=== PATIENT | male | born 1950 | race African-American/Black ===

== ENCOUNTER 2019-09-17 20:28 | Inpatient (IN) ==
[2019-09-17] MEDS: diphenhydrAMINE CAP 50 MG CAPSULE PO PRN (23:46)
[2019-09-17] MEDS ORDERED: DEXTROSE 50% 25 GM/50 ML SYRINGE IV PRN (23:55)
[2019-09-17] MEDS ORDERED: DOCUSATE SODIUM 100 MG CAPSULE PO PRN (23:55)
[2019-09-17] MEDS ORDERED: ALBUTEROL 2.5 MG/3 ML NEB RESP TX PRN (23:55)
[2019-09-17] MEDS ORDERED: GLUCAGON 1 MG VIAL IM PRN (23:55)
[2019-09-18 00:41] LABS: Albumin 3.1 G/DL (3.4-5.0); Bilirubin,Total 0.8 MG/DL (0.2-1.0); Osmolality,Calculated 228.2 MOS/KG (273-304); Total Protein 7.5 G/DL (6.4-8.3)
[2019-09-18 00:47] LABS: Basophils % 0.3 % (0.0-0.8); Eosinophils # 0.1 10*3/uL (0.0-0.87); Eosinophils % 1.1 % (0.00-10.9); Hemoglobin 12.7 GM/DL (14.0-18.0); Immature Granulocytes % 0.3 %; Immature Granulocytes Absolute 0.02 #; Lymphocytes # 0.8 10*3/uL (1.4-4.0); Lymphocytes % 10.9 % (21.2-54.2); Mean Corpuscular HGB Conc 34.3 GM/DL (32-36); Mean Corpuscular Volume 87.3 FL (87-102); Monocytes % 10.1 % (1.7-12.7); Neutrophils % 77.3 % (38.7-73.9); Platelet Count 384 T/CUMM (130-400); Red Blood Count 4.24 MC/CUMM (3.8-5.5); Red Cell Distribution Width 11.7 % (9.3-17.3); White Blood Count 7.4 T/CUMM (4-12)
[2019-09-18] MEDS: CEFEPIME 2,000 MG in SODIUM CHLORIDE 0.9% 100 ML IV SCH ×3 (01:07→17:00)
[2019-09-18] MEDS: ALBUTEROL/IPRATROPIUM 3 ML NEB RESP TX SCH ×4 (02:00→19:43)
[2019-09-18] MEDS: DIAZEPAM 5 MG TABLET PO PRN ×2 (02:32→23:25)
[2019-09-18] MEDS: CLINDAMYCIN INJ 600 MG in PREMIX 1 EACH IV SCH ×3 (02:33→16:24)
[2019-09-18] MEDS: ENOXAPARIN 40 MG/0.4 ML SYRINGE SUBCUT SCH ×2 (02:34→22:11)
[2019-09-18] MEDS: INSULIN LISPRO 100 UNIT/ML SUBCUT SCH ×5 (02:35→22:10)
[2019-09-18] MEDS ORDERED: LORazepam 2 MG/1 ML VIAL IV ONE (05:55)
[2019-09-18 06:42] LABS: Apearance,Urine CLEAR (Clear); Bacteria,Urine Occasional /HPF (Few); Bilirubin,Urine Negative (Negative); Blood, Urine Large mg/dL (Negative); Glucose,Urine (UA) >=500 mg/dL (Negative); Ketones,Urine 80 mg/dL (Negative); Nitrite,Urine Negative (Negative); Protein,Urine 100 MG/DL; RBC,Urine 149 /HPF (0-4); Urine Color Yellow (Yellow); Urine Specific Gravity 1.011 (1.001-1.035); Urine Urobilinogen < 2.0 EU/DL (0.2-1.0); WBC,Urine 17 /HPF (0-6)
[2019-09-18 07:15] LABS: Basophils % 0.3 % (0.0-0.8); Eosinophils % 0.3 % (0.00-10.9); Hematocrit 37.3 VOL% (42.0-52.0); Immature Granulocytes % 0.7 %; Immature Granulocytes Absolute 0.07 #; Lymphocytes # 1.2 10*3/uL (1.4-4.0); Lymphocytes % 10.9 % (21.2-54.2); Mean Corpuscular HGB Conc 34.9 GM/DL (32-36); Mean Corpuscular Volume 85.7 FL (87-102); Mean Platelet Volume 8.5 FL (9.6-12.0); Monocytes % 8.8 % (1.7-12.7); Platelet Count 381 T/CUMM (130-400); Red Blood Count 4.35 MC/CUMM (3.8-5.5); Red Cell Distribution Width 11.8 % (9.3-17.3); White Blood Count 10.6 T/CUMM (4-12)
[2019-09-18 07:36] LABS: Calcium 9.2 MG/DL (8.5-10.1); Osmolality,Calculated 227.3 MOS/KG (273-304)
[2019-09-18] MEDS: LEVOTHYROXINE 50 MCG TABLET PO SCH (08:49)
[2019-09-18] MEDS: LOSARTAN 50 MG TABLET PO SCH (08:49)
[2019-09-18] MEDS: DILTIAZEM CD 180 MG CAPSULE PO SCH (08:49)
[2019-09-18] MEDS: ATORVASTATIN 10 MG TABLET PO SCH (08:49)
[2019-09-18] MEDS: SODIUM CHLORIDE 0.9% 1,000 ML IV SCH ×3 (08:50→18:21)
[2019-09-18] MEDS: NEBIVOLOL 10 MG TABLET PO SCH (08:50)
[2019-09-18 09:12] LABS: Hypochromasia Slight; Platelet Estimate Normal
[2019-09-18] MEDS ORDERED: SODIUM CHLORIDE 3% INJ 500 ML IV SCH (09:30)
[2019-09-18 10:00] LABS: ABG Base Excess 3.3 MMOL/L (-2.5-2.5); ABG HCO3 27.3 MMOL/L (20-26); ABG PH 7.271 (7.35-7.45); ABG TCO2 29.4 MMOL/L (23-27); Allen Test Positive
[2019-09-18 10:01] LABS: ABG PCO2 71.2 MM HG (35-48)
[2019-09-18 12:56] LABS: Calcium 8.6 MG/DL (8.5-10.1); Osmolality,Calculated 230.9 MOS/KG (273-304)
[2019-09-18 13:19] LABS: Lymphocytes,Pleural Fluid 83 %; Monocytes,Pleural Fluid 15 %; Neutrophils,Pleural Fluid 2 %; RBC,Pleural Fluid 3890 T/CUMM
[2019-09-18] MEDS ORDERED: ZIPRASIDONE 20 MG/1 ML VIAL IM ONE (13:33)
[2019-09-18 14:35] LABS: Calcium 8.2 MG/DL (8.5-10.1); Osmolality,Calculated 235.6 MOS/KG (273-304)
[2019-09-18 16:10] LABS: Calcium 8.3 MG/DL (8.5-10.1); Osmolality,Calculated 233.8 MOS/KG (273-304)
[2019-09-18 18:36] LABS: Calcium 8.7 MG/DL (8.5-10.1); Osmolality,Calculated 231.9 MOS/KG (273-304)
[2019-09-18 20:27] LABS: Calcium 8.6 MG/DL (8.5-10.1); Osmolality,Calculated 235.6 MOS/KG (273-304)
[2019-09-18] MEDS: hydrALAZINE 20 MG/1 ML VIAL IV PRN (22:11)
[2019-09-18 22:19] LABS: ABG Base Excess 6.2 MMOL/L (-2.5-2.5); ABG HCO3 29.9 MMOL/L (20-26); ABG Oxygen Saturation 91.5 % (95-100); ABG PCO2 56.2 MM HG (35-48); ABG PO2 58.6 MM HG (80-95); ABG TCO2 29.2 MMOL/L (23-27); Allen Test Positive
[2019-09-18 22:52] LABS: Osmolality,Calculated 236.6 MOS/KG (273-304)
[2019-09-19 00:55] LABS: Calcium 8.8 MG/DL (8.5-10.1); Osmolality,Calculated 237.6 MOS/KG (273-304)
[2019-09-19 01:09] LABS: ABG Base Excess 5.8 MMOL/L (-2.5-2.5); ABG HCO3 29.5 MMOL/L (20-26); ABG PCO2 52.6 MM HG (35-48); ABG PH 7.394 (7.35-7.45); ABG PO2 71.1 MM HG (80-95); ABG TCO2 28.3 MMOL/L (23-27); Allen Test Positive; Pt O2 Delivery Device Other
[2019-09-19] MEDS: ALBUTEROL/IPRATROPIUM 3 ML NEB RESP TX SCH ×4 (01:17→19:30)
[2019-09-19] MEDS: CLINDAMYCIN INJ 600 MG in PREMIX 1 EACH IV SCH ×4 (01:44→23:30)
[2019-09-19] MEDS: ACETAMINOPHEN 325 MG TABLET PO PRN (02:19)
[2019-09-19 02:26] LABS: Calcium 8.6 MG/DL (8.5-10.1); Osmolality,Calculated 241.3 MOS/KG (273-304)
[2019-09-19] MEDS: CEFEPIME 2,000 MG in SODIUM CHLORIDE 0.9% 100 ML IV SCH ×3 (03:07→16:11)
[2019-09-19 05:43] LABS: Basophils % 0.2 % (0.0-0.8); Hematocrit 37.3 VOL% (42.0-52.0); Hemoglobin 12.5 GM/DL (14.0-18.0); Immature Granulocytes % 0.3 %; Immature Granulocytes Absolute 0.03 #; Lymphocytes # 0.5 10*3/uL (1.4-4.0); Lymphocytes % 5.5 % (21.2-54.2); Mean Corpuscular HGB Conc 33.5 GM/DL (32-36); Monocytes % 7.5 % (1.7-12.7); Neutrophils % 86.5 % (38.7-73.9); Platelet Count 330 T/CUMM (130-400); Red Blood Count 4.24 MC/CUMM (3.8-5.5); Red Cell Distribution Width 11.9 % (9.3-17.3); White Blood Count 8.9 T/CUMM (4-12)
[2019-09-19 06:19] LABS: Calcium 8.9 MG/DL (8.5-10.1); Osmolality,Calculated 234.8 MOS/KG (273-304)
[2019-09-19 06:49] LABS: Calcium 8.8 MG/DL (8.5-10.1); Osmolality,Calculated 240.3 MOS/KG (273-304)
[2019-09-19] MEDS: LEVOTHYROXINE 50 MCG TABLET PO SCH (07:15)
[2019-09-19] MEDS: INSULIN LISPRO 100 UNIT/ML SUBCUT SCH ×4 (08:48→20:42)
[2019-09-19] MEDS: DILTIAZEM CD 180 MG CAPSULE PO SCH (08:49)
[2019-09-19] MEDS: NEBIVOLOL 10 MG TABLET PO SCH (08:49)
[2019-09-19] MEDS: LOSARTAN 50 MG TABLET PO SCH (08:49)
[2019-09-19] MEDS: ATORVASTATIN 10 MG TABLET PO SCH (08:49)
[2019-09-19 09:06] LABS: Osmolality,Calculated 241.2 MOS/KG (273-304)
[2019-09-19 09:07] LABS: PT Patient Result 11.3 SECS (9.6-12.2)
[2019-09-19 09:36] LABS: ABG Base Excess 6.5 MMOL/L (-2.5-2.5); ABG HCO3 30.3 MMOL/L (20-26); ABG Oxygen Saturation 98.8 % (95-100); ABG PCO2 68.5 MM HG (35-48); ABG TCO2 31.3 MMOL/L (23-27); Pt O2 Delivery Device Other
[2019-09-19] MEDS: ZIPRASIDONE 20 MG/1 ML VIAL IM PRN ×2 (10:06→21:58)
[2019-09-19 19:06] LABS: Osmolality,Calculated 240.3 MOS/KG (273-304)
[2019-09-19] MEDS: ENOXAPARIN 40 MG/0.4 ML SYRINGE SUBCUT SCH (20:42)
[2019-09-20] MEDS: CEFEPIME 2,000 MG in SODIUM CHLORIDE 0.9% 100 ML IV SCH ×3 (00:01→21:56)
[2019-09-20] MEDS: ALBUTEROL/IPRATROPIUM 3 ML NEB RESP TX SCH ×4 (00:27→19:54)
[2019-09-20] MEDS: diphenhydrAMINE CAP 50 MG CAPSULE PO PRN (00:28)
[2019-09-20] MEDS: ZIPRASIDONE 20 MG/1 ML VIAL IM PRN ×4 (03:41→22:39)
[2019-09-20 04:33] LABS: ABG Base Excess 6.4 MMOL/L (-2.5-2.5); ABG HCO3 35.4 MMOL/L (20-26); ABG PH 7.296 (7.35-7.45); ABG TCO2 37.6 MMOL/L (23-27); Allen Test Positive; Pt O2 Delivery Device Other
[2019-09-20 04:35] LABS: ABG PCO2 74.2 MM HG (35-48)
[2019-09-20 06:00] LABS: Basophils % 0.2 % (0.0-0.8); Eosinophils % 0.2 % (0.00-10.9); Hematocrit 38.9 VOL% (42.0-52.0); Hemoglobin 12.8 GM/DL (14.0-18.0); Immature Granulocytes % 0.4 %; Immature Granulocytes Absolute 0.03 #; Lymphocytes # 0.6 10*3/uL (1.4-4.0); Lymphocytes % 6.8 % (21.2-54.2); Mean Corpuscular HGB Conc 32.9 GM/DL (32-36); Mean Platelet Volume 8.1 FL (9.6-12.0); Monocytes % 9.7 % (1.7-12.7); Neutrophils % 82.7 % (38.7-73.9); Platelet Count 334 T/CUMM (130-400); Red Blood Count 4.32 MC/CUMM (3.8-5.5); Red Cell Distribution Width 11.9 % (9.3-17.3); White Blood Count 8.6 T/CUMM (4-12)
[2019-09-20] MEDS: LEVOTHYROXINE 50 MCG TABLET PO SCH (06:03)
[2019-09-20] MEDS: INSULIN LISPRO 100 UNIT/ML SUBCUT SCH ×4 (07:38→21:13)
[2019-09-20 08:48] LABS: Albumin 2.5 G/DL (3.4-5.0); Bilirubin,Total 0.4 MG/DL (0.2-1.0); Calcium 8.6 MG/DL (8.5-10.1); Osmolality,Calculated 236.5 MOS/KG (273-304)
[2019-09-20] MEDS: CLINDAMYCIN INJ 600 MG in PREMIX 1 EACH IV SCH ×2 (09:20→21:12)
[2019-09-20] MEDS: DILTIAZEM CD 180 MG CAPSULE PO SCH (09:22)
[2019-09-20] MEDS: ATORVASTATIN 10 MG TABLET PO SCH (09:23)
[2019-09-20] MEDS: NEBIVOLOL 10 MG TABLET PO SCH (09:23)
[2019-09-20] MEDS: LOSARTAN 50 MG TABLET PO SCH (09:23)
[2019-09-20] MEDS: methylPREDNISolone SOD SUC 40 MG/1 ML VIAL IV SCH ×2 (09:32→16:49)
[2019-09-20] MEDS: SODIUM CHLORIDE 3% INJ 500 ML IV SCH ×2 (10:55→22:35)
[2019-09-20 13:56] LABS: Calcium 8.7 MG/DL (8.5-10.1); Osmolality,Calculated 244.9 MOS/KG (273-304)
[2019-09-20 15:56] LABS: Calcium 8.8 MG/DL (8.5-10.1); Osmolality,Calculated 249.8 MOS/KG (273-304)
[2019-09-20 17:29] LABS: Calcium 8.7 MG/DL (8.5-10.1); Osmolality,Calculated 251.6 MOS/KG (273-304)
[2019-09-20] MEDS: hydrALAZINE 20 MG/1 ML VIAL IV PRN (17:32)
[2019-09-20 19:34] LABS: Calcium 8.9 MG/DL (8.5-10.1); Osmolality,Calculated 252.6 MOS/KG (273-304)
[2019-09-20] MEDS: ENOXAPARIN 40 MG/0.4 ML SYRINGE SUBCUT SCH (21:13)
[2019-09-20 21:21] LABS: Calcium 8.6 MG/DL (8.5-10.1); Osmolality,Calculated 253.5 MOS/KG (273-304)
[2019-09-20 23:04] LABS: Calcium 8.7 MG/DL (8.5-10.1); Osmolality,Calculated 250.6 MOS/KG (273-304)
[2019-09-21 01:25] LABS: Calcium 8.9 MG/DL (8.5-10.1); Osmolality,Calculated 254.4 MOS/KG (273-304)
[2019-09-21] MEDS: ALBUTEROL/IPRATROPIUM 3 ML NEB RESP TX SCH ×4 (02:18→19:47)
[2019-09-21 03:24] LABS: Basophils % 0.1 % (0.0-0.8); Hematocrit 38.2 VOL% (42.0-52.0); Hemoglobin 12.4 GM/DL (14.0-18.0); Immature Granulocytes % 0.4 %; Immature Granulocytes Absolute 0.03 #; Lymphocytes # 0.3 10*3/uL (1.4-4.0); Lymphocytes % 3.6 % (21.2-54.2); Mean Corpuscular HGB Conc 32.5 GM/DL (32-36); Mean Corpuscular Volume 91.2 FL (87-102); Mean Platelet Volume 7.8 FL (9.6-12.0); Monocytes % 5.1 % (1.7-12.7); Neutrophils % 90.8 % (38.7-73.9); Platelet Count 346 T/CUMM (130-400); Red Blood Count 4.19 MC/CUMM (3.8-5.5); Red Cell Distribution Width 12.2 % (9.3-17.3); White Blood Count 8.3 T/CUMM (4-12)
[2019-09-21 03:38] LABS: Calcium 8.9 MG/DL (8.5-10.1); Osmolality,Calculated 250.6 MOS/KG (273-304)
[2019-09-21 04:03] LABS: Hypochromasia 1+; Lymphocytes 3 % (20-55); Ovalocytes Slight; Platelet Estimate Adequate; Segmented Neutrophils 94 % (50-85); Total Cells Counted 100
[2019-09-21] MEDS: CLINDAMYCIN INJ 600 MG in PREMIX 1 EACH IV SCH ×3 (04:43→21:38)
[2019-09-21] MEDS: methylPREDNISolone SOD SUC 40 MG/1 ML VIAL IV SCH ×3 (04:43→17:20)
[2019-09-21] MEDS: CEFEPIME 2,000 MG in SODIUM CHLORIDE 0.9% 100 ML IV SCH (05:13)
[2019-09-21 06:28] LABS: Osmolality,Calculated 257.2 MOS/KG (273-304)
[2019-09-21] MEDS: LEVOTHYROXINE 50 MCG TABLET PO SCH (06:42)
[2019-09-21 08:13] LABS: Calcium 8.8 MG/DL (8.5-10.1); Osmolality,Calculated 259.1 MOS/KG (273-304)
[2019-09-21] MEDS: DILTIAZEM CD 180 MG CAPSULE PO SCH (09:29)
[2019-09-21] MEDS: ATORVASTATIN 10 MG TABLET PO SCH (09:29)
[2019-09-21] MEDS: NEBIVOLOL 10 MG TABLET PO SCH (09:29)
[2019-09-21] MEDS: LOSARTAN 50 MG TABLET PO SCH (09:29)
[2019-09-21] MEDS: INSULIN LISPRO 100 UNIT/ML SUBCUT SCH ×4 (09:30→21:38)
[2019-09-21] MEDS: SODIUM CHLORIDE 1 GM TABLET PO SCH ×3 (09:36→21:37)
[2019-09-21] MEDS: CEFUROXIME 250 MG TABLET PO SCH ×2 (09:36→21:38)
[2019-09-21] MEDS: hydrALAZINE 20 MG/1 ML VIAL IV PRN (13:21)
[2019-09-21] MEDS: SODIUM CHLORIDE 3% INJ 500 ML IV SCH (17:19)
[2019-09-21] MEDS: ENOXAPARIN 40 MG/0.4 ML SYRINGE SUBCUT SCH (21:37)
[2019-09-22] MEDS: methylPREDNISolone SOD SUC 40 MG/1 ML VIAL IV SCH ×3 (00:10→17:58)
[2019-09-22] MEDS: ALBUTEROL/IPRATROPIUM 3 ML NEB RESP TX SCH ×4 (00:25→19:35)
[2019-09-22] MEDS: CLINDAMYCIN INJ 600 MG in PREMIX 1 EACH IV SCH ×3 (05:01→20:35)
[2019-09-22] MEDS: LEVOTHYROXINE 50 MCG TABLET PO SCH (05:43)
[2019-09-22 06:36] LABS: Osmolality,Calculated 261.9 MOS/KG (273-304)
[2019-09-22] MEDS: NEBIVOLOL 10 MG TABLET PO SCH (08:36)
[2019-09-22] MEDS: ATORVASTATIN 10 MG TABLET PO SCH (08:36)
[2019-09-22] MEDS: CEFUROXIME 250 MG TABLET PO SCH ×2 (08:36→20:35)
[2019-09-22] MEDS: LOSARTAN 50 MG TABLET PO SCH (08:36)
[2019-09-22] MEDS: SODIUM CHLORIDE 1 GM TABLET PO SCH (08:36)
[2019-09-22] MEDS: DILTIAZEM CD 180 MG CAPSULE PO SCH (08:36)
[2019-09-22] MEDS: INSULIN LISPRO 100 UNIT/ML SUBCUT SCH ×4 (08:36→20:48)
[2019-09-22] MEDS: ZIPRASIDONE 20 MG/1 ML VIAL IM PRN (13:05)
[2019-09-22] MEDS: ENOXAPARIN 40 MG/0.4 ML SYRINGE SUBCUT SCH (20:36)
[2019-09-23] MEDS: methylPREDNISolone SOD SUC 40 MG/1 ML VIAL IV SCH ×3 (00:55→17:02)
[2019-09-23] MEDS: CLINDAMYCIN INJ 600 MG in PREMIX 1 EACH IV SCH ×3 (04:50→20:48)
[2019-09-23 06:30] LABS: Calcium 8.9 MG/DL (8.5-10.1); Osmolality,Calculated 264.8 MOS/KG (273-304)
[2019-09-23] MEDS: LEVOTHYROXINE 50 MCG TABLET PO SCH (07:08)
[2019-09-23] MEDS: ALBUTEROL/IPRATROPIUM 3 ML NEB RESP TX SCH ×4 (07:55→19:55)
[2019-09-23] MEDS: LOSARTAN 50 MG TABLET PO SCH (08:56)
[2019-09-23] MEDS: CEFUROXIME 250 MG TABLET PO SCH ×2 (08:56→20:46)
[2019-09-23] MEDS: ATORVASTATIN 10 MG TABLET PO SCH (08:56)
[2019-09-23] MEDS: DILTIAZEM CD 180 MG CAPSULE PO SCH (08:56)
[2019-09-23] MEDS: NEBIVOLOL 10 MG TABLET PO SCH (08:57)
[2019-09-23] MEDS: INSULIN LISPRO 100 UNIT/ML SUBCUT SCH ×4 (08:59→20:52)
[2019-09-23] MEDS: ENOXAPARIN 40 MG/0.4 ML SYRINGE SUBCUT SCH (20:46)
[2019-09-24] MEDS: ALBUTEROL/IPRATROPIUM 3 ML NEB RESP TX SCH ×4 (00:10→20:25)
[2019-09-24] MEDS: methylPREDNISolone SOD SUC 40 MG/1 ML VIAL IV SCH ×3 (01:24→16:21)
[2019-09-24] MEDS: CLINDAMYCIN INJ 600 MG in PREMIX 1 EACH IV SCH ×3 (05:37→20:45)
[2019-09-24] MEDS: LEVOTHYROXINE 50 MCG TABLET PO SCH (05:37)
[2019-09-24 06:21] LABS: Calcium 8.8 MG/DL (8.5-10.1); Osmolality,Calculated 263.7 MOS/KG (273-304)
[2019-09-24] MEDS: NEBIVOLOL 10 MG TABLET PO SCH (08:53)
[2019-09-24] MEDS: LOSARTAN 50 MG TABLET PO SCH (08:54)
[2019-09-24] MEDS: CEFUROXIME 250 MG TABLET PO SCH ×2 (08:54→21:28)
[2019-09-24] MEDS: INSULIN LISPRO 100 UNIT/ML SUBCUT SCH ×4 (08:54→21:29)
[2019-09-24] MEDS: DILTIAZEM CD 180 MG CAPSULE PO SCH (08:54)
[2019-09-24] MEDS: ATORVASTATIN 10 MG TABLET PO SCH (08:54)
[2019-09-24] MEDS: ONDANSETRON 4 MG/2 ML VIAL IV PRN (08:56)
[2019-09-24] MEDS: ENOXAPARIN 40 MG/0.4 ML SYRINGE SUBCUT SCH (21:30)
[2019-09-25] MEDS: methylPREDNISolone SOD SUC 40 MG/1 ML VIAL IV SCH ×3 (01:24→19:08)
[2019-09-25] MEDS: ALBUTEROL/IPRATROPIUM 3 ML NEB RESP TX SCH ×4 (04:18→19:54)
[2019-09-25 05:44] LABS: Calcium 8.8 MG/DL (8.5-10.1); Osmolality,Calculated 263.8 MOS/KG (273-304)
[2019-09-25] MEDS: CLINDAMYCIN INJ 600 MG in PREMIX 1 EACH IV SCH (06:18)
[2019-09-25] MEDS: LEVOTHYROXINE 50 MCG TABLET PO SCH (06:28)
[2019-09-25] MEDS ORDERED: SODIUM POLYSTYRENE SULFATE 15 GM/60 ML BOTTLE PO ONE (07:50)
[2019-09-25 08:24] LABS: Risk Ratio 2.95
[2019-09-25] MEDS: DILTIAZEM CD 180 MG CAPSULE PO SCH (08:28)
[2019-09-25] MEDS: NEBIVOLOL 10 MG TABLET PO SCH (08:28)
[2019-09-25] MEDS: INSULIN LISPRO 100 UNIT/ML SUBCUT SCH ×4 (08:28→21:47)
[2019-09-25] MEDS: CEFUROXIME 250 MG TABLET PO SCH ×2 (08:29→21:47)
[2019-09-25] MEDS: LOSARTAN 50 MG TABLET PO SCH (08:29)
[2019-09-25] MEDS: ATORVASTATIN 10 MG TABLET PO SCH (08:29)
[2019-09-25] MEDS: ZIPRASIDONE 20 MG/1 ML VIAL IM PRN (21:47)
[2019-09-25] MEDS: ENOXAPARIN 40 MG/0.4 ML SYRINGE SUBCUT SCH (21:47)
[2019-09-25] MEDS ORDERED: HALOPERIDOL 5 MG/ML AMP IM ONE (23:07)
[2019-09-26] MEDS: methylPREDNISolone SOD SUC 40 MG/1 ML VIAL IV SCH ×3 (01:43→23:40)
[2019-09-26] MEDS ORDERED: HALOPERIDOL 5 MG/ML AMP IM ONE (03:07)
[2019-09-26] MEDS: ALBUTEROL/IPRATROPIUM 3 ML NEB RESP TX SCH ×4 (03:15→19:40)
[2019-09-26 09:34] LABS: Basophils % 0.1 % (0.0-0.8); Hematocrit 39.1 VOL% (42.0-52.0); Hemoglobin 12.3 GM/DL (14.0-18.0); Immature Granulocytes % 0.5 %; Immature Granulocytes Absolute 0.06 #; Lymphocytes # 0.5 10*3/uL (1.4-4.0); Lymphocytes % 4.1 % (21.2-54.2); Mean Corpuscular HGB Conc 31.5 GM/DL (32-36); Mean Corpuscular Volume 90.9 FL (87-102); Mean Platelet Volume 8.7 FL (9.6-12.0); Monocytes % 4.9 % (1.7-12.7); Neutrophils % 90.4 % (38.7-73.9); Platelet Count 312 T/CUMM (130-400); Red Cell Distribution Width 12.5 % (9.3-17.3); White Blood Count 11.6 T/CUMM (4-12)
[2019-09-26 09:47] LABS: Calcium 8.8 MG/DL (8.5-10.1); Osmolality,Calculated 269.7 MOS/KG (273-304)
[2019-09-26] MEDS ORDERED: GRANISETRON 1 MG/1 ML VIAL IV ONE ×2 (10:00→17:30)
[2019-09-26] MEDS: CEFUROXIME 250 MG TABLET PO SCH ×3 (10:00→22:05)
[2019-09-26] MEDS: DILTIAZEM CD 180 MG CAPSULE PO SCH ×2 (10:00→10:31)
[2019-09-26] MEDS: INSULIN LISPRO 100 UNIT/ML SUBCUT SCH ×4 (10:01→22:05)
[2019-09-26] MEDS: LOSARTAN 50 MG TABLET PO SCH ×2 (10:01→10:31)
[2019-09-26] MEDS: ATORVASTATIN 10 MG TABLET PO SCH ×2 (10:01→10:31)
[2019-09-26] MEDS: NEBIVOLOL 10 MG TABLET PO SCH ×2 (10:01→10:31)
[2019-09-26] MEDS: LEVOTHYROXINE 50 MCG TABLET PO SCH ×2 (10:04→10:31)
[2019-09-26 10:07] LABS: Hypochromasia 1+; Lymphocytes 4 % (20-55); Segmented Neutrophils 89 % (50-85); Total Cells Counted 100
[2019-09-26 10:08] LABS: Anisocytosis 1+; Microcytosis 1+; Platelet Estimate Normal; Polychromasia Slight
[2019-09-26] MEDS ORDERED: CARBOplatin 550 MG in SODIUM CHLORIDE 0.9% 250 ML IV ONE (10:30)
[2019-09-26] MEDS ORDERED: ETOPOSIDE 200 MG in SODIUM CHLORIDE 0.9% 500 ML IV ONE (10:30)
[2019-09-26] MEDS: ENOXAPARIN 40 MG/0.4 ML SYRINGE SUBCUT SCH (23:37)
[2019-09-27] MEDS: ALBUTEROL/IPRATROPIUM 3 ML NEB RESP TX SCH ×4 (00:43→19:46)
[2019-09-27 06:05] LABS: Basophils % 0.1 % (0.0-0.8); Hematocrit 43.3 VOL% (42.0-52.0); Hemoglobin 13.1 GM/DL (14.0-18.0); Immature Granulocytes % 0.6 %; Immature Granulocytes Absolute 0.09 #; Lymphocytes # 0.4 10*3/uL (1.4-4.0); Lymphocytes % 2.9 % (21.2-54.2); Mean Corpuscular HGB Conc 30.3 GM/DL (32-36); Mean Corpuscular Volume 95.8 FL (87-102); Mean Platelet Volume 8.6 FL (9.6-12.0); Neutrophils % 91.4 % (38.7-73.9); Platelet Count 371 T/CUMM (130-400); Red Blood Count 4.52 MC/CUMM (3.8-5.5); Red Cell Distribution Width 12.8 % (9.3-17.3); White Blood Count 15.1 T/CUMM (4-12)
[2019-09-27] MEDS: LEVOTHYROXINE 50 MCG TABLET PO SCH (06:19)
[2019-09-27 06:25] LABS: Calcium 8.6 MG/DL (8.5-10.1); Osmolality,Calculated 272.1 MOS/KG (273-304)
[2019-09-27 06:31] LABS: Lymphocytes 4 % (20-55)
[2019-09-27 06:33] LABS: Platelet Estimate Normal; Segmented Neutrophils 93 % (50-85); Total Cells Counted 100
[2019-09-27] MEDS ORDERED: TUBERCULIN SKIN TEST 0.1 ML SYRINGE INTRADERM ONE (08:30)
[2019-09-27] MEDS: methylPREDNISolone SOD SUC 40 MG/1 ML VIAL IV SCH ×2 (09:06→22:00)
[2019-09-27] MEDS: INSULIN LISPRO 100 UNIT/ML SUBCUT SCH ×4 (09:06→21:59)
[2019-09-27] MEDS: DILTIAZEM CD 180 MG CAPSULE PO SCH ×2 (09:12→12:02)
[2019-09-27] MEDS: NEBIVOLOL 10 MG TABLET PO SCH (12:02)
[2019-09-27] MEDS: LOSARTAN 50 MG TABLET PO SCH (12:02)
[2019-09-27] MEDS: CEFUROXIME 250 MG TABLET PO SCH ×2 (12:02→21:59)
[2019-09-27] MEDS: ATORVASTATIN 10 MG TABLET PO SCH (12:02)
[2019-09-27] MEDS: ENOXAPARIN 40 MG/0.4 ML SYRINGE SUBCUT SCH (21:59)
[2019-09-27] MEDS: HALOPERIDOL 5 MG/ML AMP IV PRN (22:00)
[2019-09-28] MEDS: ALBUTEROL/IPRATROPIUM 3 ML NEB RESP TX SCH ×4 (01:16→19:33)
[2019-09-28] MEDS: LEVOTHYROXINE 50 MCG TABLET PO SCH (05:32)
[2019-09-28 05:41] LABS: Basophils % 0.2 % (0.0-0.8); Hematocrit 40.4 VOL% (42.0-52.0); Hemoglobin 12.8 GM/DL (14.0-18.0); Immature Granulocytes % 0.5 %; Immature Granulocytes Absolute 0.06 #; Lymphocytes # 0.3 10*3/uL (1.4-4.0); Lymphocytes % 2.3 % (21.2-54.2); Mean Corpuscular HGB Conc 31.7 GM/DL (32-36); Mean Corpuscular Volume 92.2 FL (87-102); Monocytes % 2.5 % (1.7-12.7); Neutrophils % 94.5 % (38.7-73.9); Platelet Count 298 T/CUMM (130-400); Red Blood Count 4.38 MC/CUMM (3.8-5.5); Red Cell Distribution Width 12.8 % (9.3-17.3); White Blood Count 12.5 T/CUMM (4-12)
[2019-09-28 06:04] LABS: Calcium 8.9 MG/DL (8.5-10.1)
[2019-09-28 06:23] LABS: Lymphocytes 1 % (20-55); Platelet Estimate Normal; Polychromasia Slight; Segmented Neutrophils 98 % (50-85); Total Cells Counted 100
[2019-09-28] MEDS: DILTIAZEM CD 180 MG CAPSULE PO SCH (08:59)
[2019-09-28] MEDS: LOSARTAN 50 MG TABLET PO SCH (08:59)
[2019-09-28] MEDS: NEBIVOLOL 10 MG TABLET PO SCH (09:00)
[2019-09-28] MEDS: CEFUROXIME 250 MG TABLET PO SCH ×2 (09:00→22:25)
[2019-09-28] MEDS: ATORVASTATIN 10 MG TABLET PO SCH (09:00)
[2019-09-28] MEDS: INSULIN LISPRO 100 UNIT/ML SUBCUT SCH ×4 (09:01→22:25)
[2019-09-28] MEDS: HALOPERIDOL 5 MG/ML AMP IV PRN (10:15)
[2019-09-28] MEDS: methylPREDNISolone SOD SUC 40 MG/1 ML VIAL IV SCH ×2 (10:15→22:25)
[2019-09-28] MEDS: ZIPRASIDONE 20 MG/1 ML VIAL IM PRN (16:20)
[2019-09-28] MEDS: ENOXAPARIN 40 MG/0.4 ML SYRINGE SUBCUT SCH (22:24)
[2019-09-29] MEDS: ALBUTEROL/IPRATROPIUM 3 ML NEB RESP TX SCH ×4 (00:34→19:26)
[2019-09-29 05:30] LABS: Eosinophils % 0.2 % (0.00-10.9); Hematocrit 40.9 VOL% (42.0-52.0); Hemoglobin 13.1 GM/DL (14.0-18.0); Immature Granulocytes % 0.5 %; Immature Granulocytes Absolute 0.05 #; Lymphocytes # 1.1 10*3/uL (1.4-4.0); Lymphocytes % 9.8 % (21.2-54.2); Mean Corpuscular Volume 91.9 FL (87-102); Mean Platelet Volume 9.1 FL (9.6-12.0); Monocytes % 2.4 % (1.7-12.7); Neutrophils % 87.1 % (38.7-73.9); Platelet Count 290 T/CUMM (130-400); Red Blood Count 4.45 MC/CUMM (3.8-5.5); Red Cell Distribution Width 12.6 % (9.3-17.3); White Blood Count 10.7 T/CUMM (4-12)
[2019-09-29 05:52] LABS: Calcium 8.8 MG/DL (8.5-10.1)
[2019-09-29] MEDS: LEVOTHYROXINE 50 MCG TABLET PO SCH (06:16)
[2019-09-29] MEDS: INSULIN LISPRO 100 UNIT/ML SUBCUT SCH ×4 (07:44→21:38)
[2019-09-29] MEDS: DILTIAZEM CD 180 MG CAPSULE PO SCH (09:10)
[2019-09-29] MEDS: ATORVASTATIN 10 MG TABLET PO SCH (09:10)
[2019-09-29] MEDS: LOSARTAN 50 MG TABLET PO SCH (09:10)
[2019-09-29] MEDS: NEBIVOLOL 10 MG TABLET PO SCH (09:10)
[2019-09-29] MEDS: methylPREDNISolone SOD SUC 40 MG/1 ML VIAL IV SCH ×2 (09:11→21:39)
[2019-09-29] MEDS: HALOPERIDOL 5 MG/ML AMP IV PRN (12:42)
[2019-09-29] MEDS: ENOXAPARIN 40 MG/0.4 ML SYRINGE SUBCUT SCH (21:38)
[2019-09-30] MEDS: HALOPERIDOL 5 MG/ML AMP IV PRN (01:29)
[2019-09-30] MEDS: ALBUTEROL/IPRATROPIUM 3 ML NEB RESP TX SCH ×4 (01:42→19:40)
[2019-09-30] MEDS: LEVOTHYROXINE 50 MCG TABLET PO SCH (05:39)
[2019-09-30] MEDS: INSULIN LISPRO 100 UNIT/ML SUBCUT SCH ×4 (07:50→20:46)
[2019-09-30] MEDS: DILTIAZEM CD 180 MG CAPSULE PO SCH (09:27)
[2019-09-30] MEDS: methylPREDNISolone SOD SUC 40 MG/1 ML VIAL IV SCH ×2 (09:28→22:00)
[2019-09-30] MEDS: LOSARTAN 50 MG TABLET PO SCH (09:28)
[2019-09-30] MEDS: NEBIVOLOL 10 MG TABLET PO SCH (09:28)
[2019-09-30] MEDS: ATORVASTATIN 10 MG TABLET PO SCH (09:28)
[2019-09-30] MEDS: ZIPRASIDONE 20 MG/1 ML VIAL IM PRN (11:28)
[2019-09-30] MEDS ORDERED: QUEtiapine XR 50 MG TABLET PO SCH (21:00)
[2019-09-30] MEDS: ENOXAPARIN 40 MG/0.4 ML SYRINGE SUBCUT SCH (22:00)
[2019-10-01] MEDS: ALBUTEROL/IPRATROPIUM 3 ML NEB RESP TX SCH ×4 (01:28→19:52)
[2019-10-01] MEDS: ONDANSETRON 4 MG/2 ML VIAL IV PRN (05:04)
[2019-10-01 05:20] LABS: Basophils % 0.1 % (0.0-0.8); Hematocrit 40.3 VOL% (42.0-52.0); Hemoglobin 13.2 GM/DL (14.0-18.0); Immature Granulocytes % 0.7 %; Immature Granulocytes Absolute 0.07 #; Lymphocytes # 0.3 10*3/uL (1.4-4.0); Lymphocytes % 2.8 % (21.2-54.2); Mean Corpuscular HGB Conc 32.8 GM/DL (32-36); Mean Corpuscular Volume 89.6 FL (87-102); Mean Platelet Volume 9.2 FL (9.6-12.0); Monocytes % 0.8 % (1.7-12.7); Neutrophils % 95.6 % (38.7-73.9); Platelet Count 289 T/CUMM (130-400); Red Cell Distribution Width 12.8 % (9.3-17.3)
[2019-10-01 05:54] LABS: Calcium 8.9 MG/DL (8.5-10.1); Osmolality,Calculated 275.2 MOS/KG (273-304)
[2019-10-01 06:21] LABS: Lymphocytes 4 % (20-55); Segmented Neutrophils 95 % (50-85)
[2019-10-01 06:22] LABS: Platelet Estimate Normal; Total Cells Counted 100
[2019-10-01] MEDS: LEVOTHYROXINE 50 MCG TABLET PO SCH (06:22)
[2019-10-01] MEDS ORDERED: LORazepam 2 MG/1 ML VIAL IV PRN (08:45)
[2019-10-01] MEDS: INSULIN LISPRO 100 UNIT/ML SUBCUT SCH ×4 (11:29→23:01)
[2019-10-01] MEDS: methylPREDNISolone SOD SUC 40 MG/1 ML VIAL IV SCH ×2 (11:30→22:56)
[2019-10-01] MEDS: LOSARTAN 50 MG TABLET PO SCH (11:30)
[2019-10-01] MEDS: DILTIAZEM CD 180 MG CAPSULE PO SCH (11:30)
[2019-10-01] MEDS: NEBIVOLOL 10 MG TABLET PO SCH (11:30)
[2019-10-01] MEDS: ATORVASTATIN 10 MG TABLET PO SCH (11:30)
[2019-10-01] MEDS ORDERED: LORazepam 2 MG/1 ML VIAL IV ONE (17:44)
[2019-10-01] MEDS ORDERED: diphenhydrAMINE 50 MG/1 ML VIAL IV ONE (17:44)
[2019-10-01] MEDS ORDERED: HALOPERIDOL 5 MG/ML AMP IV ONE (17:45)
[2019-10-01] MEDS: QUEtiapine XR 50 MG TABLET PO SCH (22:56)
[2019-10-01] MEDS: ENOXAPARIN 40 MG/0.4 ML SYRINGE SUBCUT SCH (22:56)
[2019-10-02] MEDS: ALBUTEROL/IPRATROPIUM 3 ML NEB RESP TX SCH ×4 (01:03→19:18)
[2019-10-02] MEDS: LEVOTHYROXINE 50 MCG TABLET PO SCH (06:00)
[2019-10-02] MEDS: DILTIAZEM CD 180 MG CAPSULE PO SCH (10:11)
[2019-10-02] MEDS: THIAMINE 100 MG TABLET PO SCH (10:13)
[2019-10-02] MEDS: NEBIVOLOL 10 MG TABLET PO SCH (10:13)
[2019-10-02] MEDS: LOSARTAN 50 MG TABLET PO SCH (10:13)
[2019-10-02] MEDS: ATORVASTATIN 10 MG TABLET PO SCH (10:13)
[2019-10-02] MEDS: INSULIN LISPRO 100 UNIT/ML SUBCUT SCH ×4 (10:14→21:12)
[2019-10-02] MEDS: methylPREDNISolone SOD SUC 40 MG/1 ML VIAL IV SCH ×2 (10:26→21:13)
[2019-10-02] MEDS: ACETAMINOPHEN 325 MG TABLET PO PRN ×2 (13:55→21:09)
[2019-10-02] MEDS ORDERED: hydrALAZINE 20 MG/1 ML VIAL IV PRN (15:27)
[2019-10-02] MEDS: ENOXAPARIN 40 MG/0.4 ML SYRINGE SUBCUT SCH (21:12)
[2019-10-02] MEDS: QUEtiapine XR 50 MG TABLET PO SCH (21:17)
[2019-10-03] MEDS: ALBUTEROL/IPRATROPIUM 3 ML NEB RESP TX SCH ×4 (01:26→20:41)
[2019-10-03] MEDS: ACETAMINOPHEN 325 MG TABLET PO PRN ×4 (04:57→21:07)
[2019-10-03] MEDS: NEBIVOLOL 10 MG TABLET PO SCH (09:06)
[2019-10-03] MEDS: THIAMINE 100 MG TABLET PO SCH (09:07)
[2019-10-03] MEDS: ATORVASTATIN 10 MG TABLET PO SCH (09:07)
[2019-10-03] MEDS: LOSARTAN 50 MG TABLET PO SCH (09:07)
[2019-10-03] MEDS: DILTIAZEM CD 180 MG CAPSULE PO SCH (09:07)
[2019-10-03] MEDS: LEVOTHYROXINE 50 MCG TABLET PO SCH (09:07)
[2019-10-03] MEDS: INSULIN LISPRO 100 UNIT/ML SUBCUT SCH ×4 (09:07→21:07)
[2019-10-03] MEDS: methylPREDNISolone SOD SUC 40 MG/1 ML VIAL IV SCH (09:08)
[2019-10-03] MEDS ORDERED: FUROSEMIDE 40 MG/4 ML VIAL IV ONE (11:23)
[2019-10-03] MEDS: QUEtiapine XR 50 MG TABLET PO SCH (21:06)
[2019-10-03] MEDS: ENOXAPARIN 40 MG/0.4 ML SYRINGE SUBCUT SCH (21:07)
[2019-10-04] MEDS: ALBUTEROL/IPRATROPIUM 3 ML NEB RESP TX SCH ×4 (01:24→22:42)
[2019-10-04] MEDS: ACETAMINOPHEN 325 MG TABLET PO PRN ×3 (03:14→21:05)
[2019-10-04] MEDS: LEVOTHYROXINE 50 MCG TABLET PO SCH (06:05)
[2019-10-04] MEDS ORDERED: NON-FORMULARY MEDICATION (Diazepam 10 MG) PO PRN (08:20)
[2019-10-04] MEDS ORDERED: LOSARTAN 50 MG TABLET PO SCH (09:00)
[2019-10-04] MEDS ORDERED: DILTIAZEM CD 180 MG CAPSULE PO SCH (09:00)
[2019-10-04] MEDS: LOSARTAN 50 MG TABLET PO SCH (09:13)
[2019-10-04] MEDS: NEBIVOLOL 10 MG TABLET PO SCH ×2 (09:13→10:22)
[2019-10-04] MEDS: ATORVASTATIN 10 MG TABLET PO SCH (09:14)
[2019-10-04] MEDS: DILTIAZEM CD 180 MG CAPSULE PO SCH (09:14)
[2019-10-04] MEDS: FUROSEMIDE 40 MG TABLET PO SCH (09:14)
[2019-10-04] MEDS: THIAMINE 100 MG TABLET PO SCH (09:14)
[2019-10-04] MEDS: methylPREDNISolone SOD SUC 40 MG/1 ML VIAL IV SCH (09:15)
[2019-10-04] MEDS: INSULIN LISPRO 100 UNIT/ML SUBCUT SCH ×4 (09:16→21:06)
[2019-10-04] MEDS: IBUPROFEN 800 MG TABLET PO PRN (17:56)
[2019-10-04] MEDS: QUEtiapine XR 50 MG TABLET PO SCH (21:05)
[2019-10-04] MEDS: ENOXAPARIN 40 MG/0.4 ML SYRINGE SUBCUT SCH (21:06)
[2019-10-05] MEDS: ALBUTEROL/IPRATROPIUM 3 ML NEB RESP TX SCH ×4 (00:56→21:28)
[2019-10-05] MEDS: LEVOTHYROXINE 50 MCG TABLET PO SCH (05:30)
[2019-10-05] MEDS ORDERED: LEVOTHYROXINE 50 MCG TABLET PO SCH (07:30)
[2019-10-05] MEDS: INSULIN LISPRO 100 UNIT/ML SUBCUT SCH ×4 (08:06→20:51)
[2019-10-05] MEDS: LOSARTAN 50 MG TABLET PO SCH (08:56)
[2019-10-05] MEDS: DILTIAZEM CD 180 MG CAPSULE PO SCH (08:57)
[2019-10-05] MEDS: NEBIVOLOL 10 MG TABLET PO SCH (08:58)
[2019-10-05] MEDS: ACETAMINOPHEN 325 MG TABLET PO PRN ×2 (08:58→18:20)
[2019-10-05] MEDS: ATORVASTATIN 10 MG TABLET PO SCH (08:58)
[2019-10-05] MEDS: THIAMINE 100 MG TABLET PO SCH (08:59)
[2019-10-05] MEDS: methylPREDNISolone SOD SUC 40 MG/1 ML VIAL IV SCH (08:59)
[2019-10-05] MEDS: FUROSEMIDE 40 MG TABLET PO SCH (08:59)
[2019-10-05] MEDS: LIDOCAINE 5% PATCH TRANSDERM SCH (09:00)
[2019-10-05] MEDS: IBUPROFEN 800 MG TABLET PO PRN (15:21)
[2019-10-05] MEDS: QUEtiapine XR 50 MG TABLET PO SCH (20:59)
[2019-10-05] MEDS ORDERED: MELATONIN 3 MG TABLET PO ONE (21:00)
[2019-10-05] MEDS: ENOXAPARIN 40 MG/0.4 ML SYRINGE SUBCUT SCH (21:00)
[2019-10-06] MEDS: ALBUTEROL/IPRATROPIUM 3 ML NEB RESP TX SCH ×4 (02:40→20:00)
[2019-10-06] MEDS: ACETAMINOPHEN 325 MG TABLET PO PRN ×4 (03:10→15:43)
[2019-10-06] MEDS: LEVOTHYROXINE 50 MCG TABLET PO SCH (06:14)
[2019-10-06] MEDS: INSULIN LISPRO 100 UNIT/ML SUBCUT SCH ×4 (08:20→20:45)
[2019-10-06] MEDS: methylPREDNISolone SOD SUC 40 MG/1 ML VIAL IV SCH (08:26)
[2019-10-06] MEDS: LIDOCAINE 5% PATCH TRANSDERM SCH (08:27)
[2019-10-06] MEDS: THIAMINE 100 MG TABLET PO SCH (08:31)
[2019-10-06] MEDS: ATORVASTATIN 10 MG TABLET PO SCH (08:31)
[2019-10-06] MEDS: LOSARTAN 50 MG TABLET PO SCH (08:31)
[2019-10-06] MEDS: NEBIVOLOL 10 MG TABLET PO SCH (08:31)
[2019-10-06] MEDS: FUROSEMIDE 40 MG TABLET PO SCH (08:31)
[2019-10-06] MEDS: DILTIAZEM CD 180 MG CAPSULE PO SCH (08:31)
[2019-10-06] MEDS ORDERED: LIDOCAINE 5% PATCH TRANSDERM SCH (09:27)
[2019-10-06] MEDS: QUEtiapine XR 50 MG TABLET PO SCH (20:45)
[2019-10-06] MEDS: ENOXAPARIN 40 MG/0.4 ML SYRINGE SUBCUT SCH (20:45)
[2019-10-07] MEDS: ACETAMINOPHEN 325 MG TABLET PO PRN ×3 (00:05→11:26)
[2019-10-07] MEDS: ALBUTEROL/IPRATROPIUM 3 ML NEB RESP TX SCH ×3 (01:06→12:55)
[2019-10-07] MEDS: LEVOTHYROXINE 50 MCG TABLET PO SCH (06:20)
[2019-10-07] MEDS: NEBIVOLOL 10 MG TABLET PO SCH (09:44)
[2019-10-07] MEDS: THIAMINE 100 MG TABLET PO SCH (09:44)
[2019-10-07] MEDS: DILTIAZEM CD 180 MG CAPSULE PO SCH (09:45)
[2019-10-07] MEDS: ATORVASTATIN 10 MG TABLET PO SCH (09:45)
[2019-10-07] MEDS: LOSARTAN 50 MG TABLET PO SCH (09:45)
[2019-10-07] MEDS: FUROSEMIDE 40 MG TABLET PO SCH (09:45)
[2019-10-07] MEDS: methylPREDNISolone SOD SUC 40 MG/1 ML VIAL IV SCH (09:46)
[2019-10-07] MEDS: INSULIN LISPRO 100 UNIT/ML SUBCUT SCH ×2 (11:23→13:04)
[2019-10-07 12:30] VITALS: BP 108/60
== END 2019-10-07 13:55 | disposition home health service (06) | DRG 180 ==
LOC: SUPCPDRO 22:18 → SUATTDRO 22:18 → N.ICU 22:18 → N.5E 09-21 14:26 → N.TELEN 09-24 11:10
PROVIDERS: ADMIT Internal Medicine; ATTEND Internal Medicine
PROC: IRTHORA (2019-09-19 09:50)

== ENCOUNTER 2021-03-20 21:20 | Inpatient (IN) ==
[2021-03-20] MEDS ORDERED: methylPREDNISolone SOD SUC 125 MG/2 ML VIAL IV STA (21:46)
[2021-03-20] MEDS ORDERED: ONDANSETRON 4 MG/2 ML VIAL IV STA (21:46)
[2021-03-20] MEDS ORDERED: ALBUTEROL NEB SOLN 5 MG/ML 20 ML/BOTTLE CONT NEB SCH (22:00)
[2021-03-20 22:17] LABS: Eosinophils % 0.5 % (0.00-10.9); Hematocrit 21.9 VOL% (42.0-52.0); Hemoglobin 7.6 GM/DL (14.0-18.0); Immature Granulocytes % 2.9 %; Immature Granulocytes Absolute 0.11 #; Lymphocytes # 0.9 10*3/uL (1.4-4.0); Lymphocytes % 22.6 % (21.2-54.2); Mean Corpuscular HGB Conc 34.7 GM/DL (32-36); Mean Platelet Volume 10.5 FL (9.6-12.0); Monocytes % 6.1 % (1.7-12.7); NRBC # 0.03 10*3/uL; Neutrophils % 67.9 % (38.7-73.9); Red Blood Count 2.46 MC/CUMM (3.8-5.5); Red Cell Distribution Width 14.3 % (9.3-17.3); White Blood Count 3.8 T/CUMM (4-12)
[2021-03-20 22:19] LABS: Platelet Count 28 T/CUMM (130-400)
[2021-03-20 22:24] LABS: INR 1.2; PT Patient Result 13.2 SECS (10.5-12.0)
[2021-03-20 22:46] LABS: Albumin 2.6 G/DL (3.4-5.0); Bilirubin,Total 0.7 MG/DL (0.20-1.00); Calcium 8.7 MG/DL (8.5-10.1); Osmolality,Calculated 251.8 MOS/KG (273-304); Potassium 3.8 MMOL/L (3.5-5.1); Total Protein 6.9 G/DL (6.4-8.2)
[2021-03-20] MEDS ORDERED: PIPERACILLIN/TAZOBACTAM 3,375 MG in SODIUM CHLORIDE 0.9% 100 ML IV STA (23:05)
[2021-03-20 23:20] LABS: Band Neutrophils 2 % (0-10); Eosinophils 1 % (0-10); Lymphocytes 20 % (20-55); Microcytosis 1+; Nucleated Red Blood Cells 1 (0-5); Platelet Estimate Decreased; Segmented Neutrophils 72 % (50-85); Total Cells Counted 100
[2021-03-20 23:22] LABS: Ovalocytes Slight; Polychromasia Slight
[2021-03-20] MEDS ORDERED: DEXTROSE 50% 25 GM/50 ML VIAL IV PRN ×2 (23:43)
[2021-03-20] MEDS ORDERED: guaiFENesin/DM ER 600-30 MG TABLET PO PRN (23:43)
[2021-03-20] MEDS ORDERED: ONDANSETRON 4 MG/2 ML VIAL IV PRN (23:43)
[2021-03-20] MEDS ORDERED: diphenhydrAMINE CAP 25 MG CAPSULE PO PRN (23:43)
[2021-03-20] MEDS ORDERED: ACETAMINOPHEN 325 MG TABLET PO PRN (23:43)
[2021-03-20] MEDS ORDERED: hydrALAZINE 20 MG/1 ML VIAL IV PRN (23:43)
[2021-03-20] MEDS ORDERED: ZALEPLON 5 MG CAPSULE PO PRN (23:43)
[2021-03-20] MEDS ORDERED: DOCUSATE SODIUM 100 MG CAPSULE PO PRN (23:43)
[2021-03-20] MEDS ORDERED: GLUCAGON 1 MG VIAL IM PRN ×2 (23:43)
[2021-03-20] MEDS ORDERED: NICOTINE 21 MG/24 HR PATCH TRANSDERM PRN (23:43)
[2021-03-20] MEDS ORDERED: SODIUM CHLORIDE 0.9% 1,000 ML IV PRN (23:50)
[2021-03-21] MEDS: ALBUTEROL/IPRATROPIUM 3 ML NEB RESP TX SCH ×4 (00:18→19:00)
[2021-03-21] MEDS: AZITHROMYCIN INJ 500 MG in SODIUM CHLORIDE 0.9% 250 ML IV SCH (01:49)
[2021-03-21] MEDS ORDERED: CLORAZEPATE 7.5 MG TABLET PO PRN (03:10)
[2021-03-21] MEDS: VANCOMYCIN INJ 1,500 MG in SODIUM CHLORIDE 0.9% 500 ML IV SCH ×2 (03:16→21:37)
[2021-03-21 05:01] LABS: Allen Test Positive
[2021-03-21 05:02] LABS: ABG Base Excess -18.2 MMOL/L (-2.5-2.5); ABG HCO3 10.9 MMOL/L (20-26); ABG Oxygen Saturation 77.7 % (95-100); ABG PCO2 21.6 MM HG (35-48); ABG PO2 62.1 MM HG (80-95); ABG TCO2 7.9 MMOL/L (23-27)
[2021-03-21] MEDS ORDERED: ROCURONIUM 100 MG/10 ML VIAL IV ONE ×2 (05:03→21:59)
[2021-03-21] MEDS ORDERED: ETOMIDATE 20 MG/10 ML VIAL IV ONE (05:03)
[2021-03-21 05:08] LABS: Basophils % 0.1 % (0.0-0.8); Eosinophils # 0.1 10*3/uL (0.0-0.87); Eosinophils % 1.2 % (0.00-10.9); Hematocrit 24.6 VOL% (42.0-52.0); Hemoglobin 7.9 GM/DL (14.0-18.0); Immature Granulocytes % 2.9 %; Immature Granulocytes Absolute 0.27 #; Lymphocytes # 4.3 10*3/uL (1.4-4.0); Lymphocytes % 46.2 % (21.2-54.2); Mean Corpuscular HGB Conc 32.1 GM/DL (32-36); Mean Corpuscular Volume 94.6 FL (87-102); Mean Platelet Volume 11.1 FL (9.6-12.0); Monocytes % 5.4 % (1.7-12.7); NRBC # 0.09 10*3/uL; Neutrophils % 44.2 % (38.7-73.9); Red Cell Distribution Width 14.6 % (9.3-17.3); White Blood Count 9.4 T/CUMM (4-12)
[2021-03-21 05:10] LABS: Platelet Count 31 T/CUMM (130-400)
[2021-03-21 05:27] LABS: Atypical Lymphocytes Few; Band Neutrophils 4 % (0-10); Eosinophils 2 % (0-10); Lymphocytes 44 % (20-55); Segmented Neutrophils 45 % (50-85); Total Cells Counted 100
[2021-03-21 05:28] LABS: Hypochromasia Slight; Microcytosis 1+; Ovalocytes Slight; Platelet Estimate Decreased
[2021-03-21] MEDS ORDERED: PHENYLEPHRINE DRIP 40 MG/250 ML PREMIX IV ONE (05:35)
[2021-03-21] MEDS ORDERED: SODIUM BICARBONATE 50 MEQ/50 ML VIAL IV ONE ×4 (05:36→08:06)
[2021-03-21 05:39] LABS: Folate 5.13 NG/ML (5.38-24.0); Vitamin B12 963 PG/ML (211-911)
[2021-03-21] MEDS ORDERED: SODIUM CHLORIDE 0.9% 500 ML IV ONE (05:40)
[2021-03-21] MEDS: PHENYLEPHRINE DRIP 40 MG/250 ML PREMIX IV PRN ×3 (05:44→09:20)
[2021-03-21] MEDS ORDERED: fentaNYL INJ 5,000 MCG in SODIUM CHLORIDE 0.9% 150 ML IV PRN (05:46)
[2021-03-21 05:57] LABS: Albumin 2.6 G/DL (3.4-5.0); Calcium 8.2 MG/DL (8.5-10.1); Osmolality,Calculated 264.5 MOS/KG (273-304); Total Protein 6.9 G/DL (6.4-8.2)
[2021-03-21] MEDS: MIDAZOLAM 100 MG in SODIUM CHLORIDE 0.9% 80 ML IV PRN ×3 (06:20→19:39)
[2021-03-21 06:35] LABS: Sedimentation Rate-Westergren 128 MM/HR (0-20)
[2021-03-21 06:54] LABS: ABG Base Excess -16.4 MMOL/L (-2.5-2.5); ABG HCO3 11.8 MMOL/L (20-26); ABG Oxygen Saturation 97.7 % (95-100); ABG PCO2 37.2 MM HG (35-48)
[2021-03-21 07:13] LABS: Bilirubin,Urine Negative (Negative); Blood, Urine Small mg/dL (Negative); Glucose,Urine (UA) >=500 mg/dL (Negative); Ketones,Urine 5 mg/dL (Negative); Mucus,Urine Occasional /LPF (Occasional); Nitrite,Urine Negative (Negative); Protein,Urine 30 MG/DL; RBC,Urine 1 /HPF (0-4); Squamous Epithelial Cell,Urine Occasional /HPF (0-10); Urine Appearance CLEAR (Clear); Urine Color Yellow (Yellow); Urine Specific Gravity 1.048 (1.001-1.035); Urine Urobilinogen < 2.0 EU/DL (0.2-1.0)
[2021-03-21] MEDS ORDERED: PIPERACILLIN/TAZOBACTAM 3,375 MG in SODIUM CHLORIDE 0.9% 100 ML IV SCH (08:00)
[2021-03-21] MEDS ORDERED: SODIUM CHLORIDE 0.9% 1,000 ML IV ONE ×2 (08:06→09:49)
[2021-03-21] MEDS ORDERED: NOREPINEPHRINE 16 MG in SODIUM CHLORIDE 0.9% 234 ML IV PRN (08:06)
[2021-03-21] MEDS: SODIUM BICARB INJ 100 MEQ in SODIUM CHLORIDE 0.45% 1,000 ML IV SCH ×2 (08:10→19:10)
[2021-03-21] MEDS ORDERED: PHENYLEPHRINE INJ 160 MG in SODIUM CHLORIDE 0.9% 234 ML IV PRN (09:29)
[2021-03-21] MEDS: INSULIN LISPRO 100 UNIT/ML SUBCUT SCH ×4 (09:45→20:44)
[2021-03-21] MEDS ORDERED: MAGNESIUM SULF RIDER 4 GM/100 ML PREMIX IV ONE (09:49)
[2021-03-21] MEDS ORDERED: cefTRIAXone 1,000 MG in SODIUM CHLORIDE 0.9% 100 ML IV SCH (10:00)
[2021-03-21] MEDS: methylPREDNISolone SOD SUC 40 MG/1 ML VIAL IV SCH ×2 (10:16→18:19)
[2021-03-21] MEDS ORDERED: SODIUM CHLORIDE 0.9% 1,000 ML IV PRN (10:20)
[2021-03-21 11:00] LABS: ABG Base Excess -10.2 MMOL/L (-2.5-2.5); ABG HCO3 16.1 MMOL/L (20-26); ABG Oxygen Saturation 92.3 % (95-100); ABG PCO2 44.8 MM HG (35-48); ABG PO2 92.3 MM HG (80-95); ABG TCO2 16.8 MMOL/L (23-27)
[2021-03-21 11:04] LABS: ABG PH 7.195 (7.35-7.45)
[2021-03-21] MEDS ORDERED: INSULIN GLARGINE 100 UNIT/ML SUBCUT SCH (13:46)
[2021-03-21 16:06] LABS: ABG Base Excess -3.7 MMOL/L (-2.5-2.5); ABG HCO3 21.2 MMOL/L (20-26); ABG Oxygen Saturation 87.3 % (95-100); ABG PCO2 39.8 MM HG (35-48); ABG PH 7.344 (7.35-7.45); ABG PO2 63.2 MM HG (80-95); ABG TCO2 20.3 MMOL/L (23-27)
[2021-03-21 17:57] VITALS: BP 125/74
[2021-03-21 21:00] LABS: Albumin 2.3 G/DL (3.4-5.0); Bilirubin,Total 1.4 MG/DL (0.20-1.00); Calcium 7.5 MG/DL (8.5-10.1); Osmolality,Calculated 271.5 MOS/KG (273-304); Potassium 4.5 MMOL/L (3.5-5.1); Total Protein 6.1 G/DL (6.4-8.2)
[2021-03-21] MEDS ORDERED: FAMOTIDINE 8 MG/ML 50 ML/BOTTLE PO SCH (21:00)
[2021-03-21 21:50] LABS: ABG Base Excess -1.9 MMOL/L (-2.5-2.5); ABG HCO3 22.5 MMOL/L (20-26); ABG Oxygen Saturation 76.2 % (95-100); ABG PCO2 40.9 MM HG (35-48); ABG PH 7.364 (7.35-7.45); ABG PO2 49.8 MM HG (80-95); ABG TCO2 21.8 MMOL/L (23-27)
[2021-03-21] MEDS ORDERED: ROCURONIUM 500 MG in SODIUM CHLORIDE 0.9% 500 ML IV PRN (22:20)
[2021-03-22] MEDS: ALBUTEROL/IPRATROPIUM 3 ML NEB RESP TX SCH (00:40)
[2021-03-22] MEDS: methylPREDNISolone SOD SUC 40 MG/1 ML VIAL IV SCH (01:04)
[2021-03-22] MEDS: AZITHROMYCIN INJ 500 MG in SODIUM CHLORIDE 0.9% 250 ML IV SCH (01:26)
[2021-03-22] MEDS ORDERED: CHOLECALCIFEROL 1,000 UNIT TABLET PO SCH (09:00)
[2021-03-22] MEDS ORDERED: ZINC GLUCONATE 50 MG TABLET PO SCH (09:00)
[2021-03-22] MEDS ORDERED: ASCORBIC ACID 500 MG TABLET PO SCH (09:00)
== END 2021-03-22 01:53 | disposition expired | DRG 208 ==
LOC: N.ED 21:20 → SUATTDRO 23:43 → N.EDINP 23:43 → N.TELEN 03-21 01:09 → N.CC 03-21 05:38
PROVIDERS: ADMIT Internal Medicine; ATTEND Internal Medicine